=== PATIENT | male | born 1965 | race American Indian/Alaskan Native ===

== ENCOUNTER 2021-12-25 09:47 | Outpatient (CLI) | payer OTHER ==
--- NOTE | 2021-12-25 11:47 | XRay Report ---
CHEST 2 VIEWS INDICATION / CLINICAL INFORMATION: COPD,HIGH BLOOD PRESSURE. COMPARISON: None available. FINDINGS: SUPPORT DEVICES: None. HEART / MEDIASTINUM: No significant abnormality. LUNGS / PLEURA: The lungs are hyperinflated. There are bibasilar airspace opacities. No pneumothorax. ADDITIONAL FINDINGS: No significant additional findings. IMPRESSION: 1. COPD with bibasilar airspace opacities. Signer Name: Cipriano Dacosta MD Signed: 12/25/2021 10:37 AM Workstation Name: [email or web address]
== END 2021-12-25 09:48 | disposition home or self-care (01) ==
LOC: XRAY 09:47
PROVIDERS: ATTEND Internal Medicine
DX: J44.9 Chronic obstructive pulmonary disease, unspecified (principal); I10 Essential (primary) hypertension
CPT/HCPCS: 71046